=== PATIENT | female | born 1985 | race Hispanic/Latino ===

== ENCOUNTER 2022-04-06 05:48 | Inpatient (IN) | payer BC, OTHER ==
[2022-04-06 06:04] VITALS: BMI 30.9
[2022-04-06 06:27] LABS: Fetal Membranes Rupture RUPTURE DETECTED (No Rupture)
[2022-04-06] MEDS ORDERED: Penicillin G Potassium 5 MILL.UNITS VIAL ONE (06:45)
[2022-04-06] MEDS ORDERED: hydrALAZINE 20 MG/ML VIAL SLOW IVP PRN ×2 (07:00→08:56)
[2022-04-06] MEDS ORDERED: Butorphanol Tartrate 1 MG/ML VIAL SLOW IVP PRN (07:00)
[2022-04-06] MEDS ORDERED: Ondansetron PF 4 MG/2 ML Vial IVP PRN ×2 (07:00→07:55)
[2022-04-06] MEDS ORDERED: Promethazine HCl 25 MG/ML VIAL IM PRN ×2 (07:00→07:55)
[2022-04-06] MEDS ORDERED: Lactated Ringer's 1,000 ML IV SCH (07:00)
[2022-04-06] MEDS ORDERED: Fentanyl 2 mcg/Bup 0.1% Cadd 100 ML ONE (07:06)
[2022-04-06 07:13] LABS: Hemoglobin 10.5 g/dL (12.0-15.5); Mean Corpuscular HGB CONC 31.7 g/dL (32.0-36.0); Mean Corpuscular Hemoglobin 23.2 pg (27.0-33.0); Mean Corpuscular Volume 73.2 fl (81.6-98.3); Mean Platelet Volume 12.6 fl (7.4-10.4); Platelet Count 139 10x3/uL (150-450); RBC Distribution Width 14.9 % (11.5-14.5); Red Blood Cell (RBC) Count 4.52 10x6/uL (3.90-5.03); White Blood Cell (WBC) Count 6.7 10x3/uL (3.5-10.5)
[2022-04-06] MEDS ORDERED: HYDROcodone/Acetaminophen 5/325 mg Tablet PO PRN (07:15)
[2022-04-06] MEDS ORDERED: NS w/ Oxytocin 30 units 500 ML IV SCH (07:15)
[2022-04-06] MEDS ORDERED: Lidocaine 1% (PF) 30 ML VIAL SC PRN (07:15)
[2022-04-06] MEDS ORDERED: Ibuprofen 800 MG TAB PO PRN (07:15)
[2022-04-06] MEDS ORDERED: diphenhydrAMINE 50 MG/ML VIAL IVP PRN (07:55)
[2022-04-06] MEDS ORDERED: Naloxone HCl 0.4 mg/ml Vial IVP PRN ×2 (07:55)
[2022-04-06] MEDS ORDERED: Lactated Ringer's 500 ML IV PRN (07:55)
[2022-04-06] MEDS ORDERED: Acetaminophen 325 MG TAB PO PRN (07:55)
[2022-04-06] MEDS ORDERED: Moisturizing Cream (Eucerin) 113 GM JAR TOP PRN (07:55)
[2022-04-06] MEDS ORDERED: ePHEDrine Sulfate 50 MG/10 ML VIAL SLOW IVP PRN (07:55)
[2022-04-06] MEDS ORDERED: Fentanyl 2 mcg/Bupivacaine 0.1% Cassette 100 ML EPIDURAL SCH (08:00)
[2022-04-06] MEDS ORDERED: Bupivacaine/Epinephrine 0.25% 30 ML VIAL ONE (08:00)
[2022-04-06] MEDS ORDERED: Communication Order-Pharmacy FS SCH (08:00)
[2022-04-06 08:02] LABS: SARS-CoV-2 NAA Rapid Test Not Detected (NotDetected)
[2022-04-06] MEDS ORDERED: Lidocaine 1% (PF) 30 ML VIAL ONE (08:08)
[2022-04-06] MEDS ORDERED: Methylergonovine 0.2 MG/ML VIAL ONE (08:15)
[2022-04-06] MEDS ORDERED: Misoprostol 200 MCG TAB ONE (08:15)
[2022-04-06] MEDS ORDERED: Carboprost 250 MCG/ML AMP ONE (08:16)
[2022-04-06] MEDS: NS w/ Oxytocin 30 units 500 ML IVPB SCH ×2 (08:37→09:32)
[2022-04-06] MEDS ORDERED: Bisacodyl 10 MG SUPP PR PRN (08:56)
[2022-04-06] MEDS ORDERED: Boostrix 0.5 ML (Tdap) VIAL IM ONE (08:56)
[2022-04-06] MEDS ORDERED: traMADol HCl 50 MG TAB PO PRN (08:56)
[2022-04-06] MEDS ORDERED: Milk Of Magnesia 30 ML UDCUP PO PRN (08:56)
[2022-04-06] MEDS ORDERED: Lanolin Ointment 7 GM TUBE TOP PRN (08:56)
[2022-04-06] MEDS ORDERED: Benzocaine-Menthol 82.5 ML CAN TOP PRN (08:56)
[2022-04-06] MEDS ORDERED: diphenhydrAMINE 25 MG CAP PO PRN (08:56)
[2022-04-06 09:51] LABS: Hep B Surf Ag Non-Reactive S/CO (NonReactive)
[2022-04-06 09:52] LABS: Syphilis Antibody Nonreactive (Nonreactive); Syphilis Antibody Index 0.06 S/CO (<1.00 Non-Reactive)
[2022-04-06 10:09] LABS: HBSAg Index 0.15 S/CO (0-0.99)
[2022-04-06] MEDS ORDERED: Penicillin G Potassium 2.5 MILL.UNITS in Sodium Chloride 0.9% 100 ML IVPB SCH (10:45)
[2022-04-06] MEDS: Docusate 100 MG CAP PO SCH ×2 (11:06→21:11)
[2022-04-06] MEDS: Prenatal Vitamin 1 TAB PO SCH (11:06)
[2022-04-06] MEDS: Ibuprofen 800 MG TAB PO SCH ×2 (13:43→21:11)
[2022-04-06] MEDS: Ferrous Sulfate 325 MG TAB PO SCH (15:24)
[2022-04-07] MEDS: Ibuprofen 800 MG TAB PO SCH ×3 (05:17→22:02)
[2022-04-07] MEDS: Docusate 100 MG CAP PO SCH ×2 (09:19→22:00)
[2022-04-07] MEDS: Ferrous Sulfate 325 MG TAB PO SCH ×2 (09:19→16:10)
[2022-04-07] MEDS: Prenatal Vitamin 1 TAB PO SCH (09:19)
[2022-04-08] MEDS: Ibuprofen 800 MG TAB PO SCH (05:50)
[2022-04-08 11:32] VITALS: BP 117/67; TEMP 98.1
[2022-04-08] MEDS: Docusate 100 MG CAP PO SCH (12:26)
[2022-04-08] MEDS: Ferrous Sulfate 325 MG TAB PO SCH (12:26)
[2022-04-08] MEDS: Prenatal Vitamin 1 TAB PO SCH (12:27)
== END 2022-04-08 16:30 | disposition home or self-care (01) | DRG 807 ==
LOC: CSHLD/OP 05:48 → CSHLD 08:47 → CSHPP 10:48
PROVIDERS: ADMIT Obstetrics & Gynecology; ATTEND Obstetrics & Gynecology
PROC: 10E0XZZ Delivery of Products of Conception, External Approach (ICD-10-PCS; principal; 2022-04-06)
DX: O99.824 Streptococcus B carrier state complicating childbirth (principal); Z37.0 Single live birth; Z3A.38 38 weeks gestation of pregnancy; Z20.822 Contact with and (suspected) exposure to COVID-19
CPT/HCPCS: 36415; 51702; 84112; 85027; 86780; 86850; 86900; 86901; 87340; 99285; J2001; J2210; J2540; J2590; J3490; U0002

== ENCOUNTER 2022-09-25 18:44 | Emergency (ER) | payer BC, OTHER, SELFPAY ==
[2022-09-25] MEDS ORDERED: Ondansetron ODT 4 MG TAB ONE (20:27)
[2022-09-25 21:22] LABS: SARS-CoV-2 NAA Rapid Test Not Detected (NotDetected)
== END 2022-09-25 21:50 | disposition home or self-care (01) ==
LOC: CSHERS 18:44
DX: R11.2 Nausea with vomiting, unspecified (principal); Z20.822 Contact with and (suspected) exposure to COVID-19
CPT/HCPCS: 99284; Q0162